=== PATIENT | female | born 1995 | race Caucasian/White ===

== ENCOUNTER 2018-10-09 16:19 | Outpatient (RCR) | payer OTHER | END 2019-01-07 | disposition home or self-care (01) | LOC: WSOH | DX: S61.032A Puncture wound without foreign body of left thumb without damage to nail, initial encounter (principal); W46.0XXA Contact with hypodermic needle, initial encounter; Z77.21 Contact with and (suspected) exposure to potentially hazardous body fluids; Y92.129 Unspecified place in nursing home as the place of occurrence of the external cause; G43.909 Migraine, unspecified, not intractable, without status migrainosus; F32.9 Major depressive disorder, single episode, unspecified; Z79.899 Other long term (current) drug therapy; Z87.891 Personal history of nicotine dependence; Y99.0 Civilian activity done for income or pay ==

== ENCOUNTER 2019-03-31 21:04 | Emergency (ER) | payer BC ==
[~2019-03-31] VITALS: Ht 180.3 cm; Wt 112.3 kg
[2019-03-31 21:51] LABS: BASO % 0.3 % (0.0-2.0); EOS # 0.2 (0.0-0.7); EOS % 2.3 % (0-4.0); GRAN # 3.2 (1.4-6.5); GRAN % 49.3 % (42.2-75.2); HEMATOCRIT 38.2 % (37.0-47.0); HEMOGLOBIN 12.6 g/dl (12.5-16.0); LYMPH # 2.7 (1.2-3.4); LYMPH % 40.7 % (20.0-51.0); MEAN CELL VOLUME 88 fl (80.0-100.0); MEAN CORPUSCULAR HEMOGLOBIN 29 pg (27.0-31.0); MEAN CORPUSCULAR HGB CONC 33 g/dl (33.0-37.0); MEAN PLATELET VOLUME 9.7 fl (7.4-10.4); MONO # 0.5 (0.1-0.6); MONO % 7.2 % (1.7-9.3); PLATELET COUNT 239 K/mm3 (130-400); RED BLOOD COUNT 4.33 M/mm3 (4.10-5.30); REDCELL DISTRIBUTION WIDTH-CV 13.1 % (11.5-14.5)
[2019-04-01 00:08] LABS: COLLECTION METHOD CLEAN CATCH
[2019-04-01 00:14] LABS: MUCOUS Present /lpf; PH 6 (5-8); SQUAMOUS EPITHELIAL 0-2 /hpf; URINE APPEARANCE Clear; URINE BACTERIA None Seen /hpf; URINE BILIRUBIN Negative (NEGATIVE); URINE BLOOD 2+ (NEGATIVE); URINE COLOR Yellow; URINE GLUCOSE Negative (NEGATIVE); URINE KETONE Negative (NEGATIVE); URINE LEUKOCYTE ESTERASE Negative (NEGATIVE); URINE NITRATE Negative (NEGATIVE); URINE PROTEIN(semi-quant) Negative (NEGATIVE); URINE RBC None Seen /hpf; URINE UROBILINOGEN Negative (NEGATIVE)
[2019-04-01 01:42] VITALS: BP 143/91; PULSE 97; TEMP 98.6
== END 2019-04-01 01:51 | disposition home or self-care (01) ==
LOC: COL.ER 21:04
PROVIDERS: Physician Assistant
DX: O02.0 Blighted ovum and nonhydatidiform mole (principal); Z3A.09 9 weeks gestation of pregnancy
CPT/HCPCS: J2791

== ENCOUNTER → 2020-02-28 | Outpatient (CLI) | payer BC ==
[~2020-02-28] MED LIST: CLEOCIN HCL300 MG PO; LEVAQUIN 750MG750 M1 PO; MOTRIN 800800 MG/TAB PO; PRENATAL MVI PO
== END | disposition still patient (30) ==
LOC: ZCOL.LAB 02:45
DX: Z20.822 Contact with and (suspected) exposure to COVID-19 (principal)

== ENCOUNTER 2020-02-29 02:49 | Outpatient (CLI) | payer BC ==
[~2020-02-29] VITALS: Ht 175.3 cm; Wt 133.2 kg
[~2020-02-29 02:49] MED LIST changes: -MOTRIN 800800 MG/TAB PO; -PRENATAL MVI PO
--- NOTE | 2020-02-29 02:50 | NUR ---
G2L0. 39-4. Ambulatory to LDR 4 with spouse. Clean gown on. EFM and TOCO explained and applied. Pt states she has been having contractions since 2300 tonight but states at 0100 they got more intense and were 4-6 mins apart. Denies leaking of fluids or vaginal bleeding. Reports good movment. VS taken. SVE /-3 by Herb DUMONT. Asssessment completed and plan of care explained. Call light within reach.
[2020-02-29] MEDS ORDERED: PRENATAL MVI PO (03:15)
[2020-02-29 03:30] VITALS: BP 139/84; PULSE 100; TEMP 98.4
[2020-02-29 04:06] VITALS: BP 136/80; PULSE 96
--- NOTE | 2020-02-29 04:06 | NUR ---
SVE UNCHANGED. PT OFF MONITORS TO USE RESTROOM AND CHANGE CLOTHES. PLAN OF CARE EXPLAINED TO PT AND SPOUSE. 0410: UPDATED ON PTS STATUS. SEE PHYSICAN NOTIFICATION. DISCHARGE ORDERS RECEIVED. 0420: DISCHARGE INSTRUCTIONS EXPLAINED TO PT AND SPOUSE. PT DENIES ANY QUESTIONS AT THIS TIME. PT AMBULATORY OFF UNIT AND HOME WITH SPOUSE.
== END 2020-02-29 04:20 | disposition home or self-care (01) ==
LOC: LDRO 02:49 → LDR 03:28 → LDRO 04:20
DX: O62.9 Abnormality of forces of labor, unspecified (principal); Z3A.39 39 weeks gestation of pregnancy; Z87.891 Personal history of nicotine dependence
CPT/HCPCS: OP

== ENCOUNTER 2020-03-03 07:09 | Inpatient (IN) | payer BC ==
[~2020-03-03] VITALS: Ht 175.3 cm; Wt 133.2 kg
[2020-03-03] VITALS (48 sets, daily range): BP systolic 91–137; BP diastolic 53–84; PULSE 80–120; TEMP 97.8–98.6
[~2020-03-03 07:09] MED LIST changes: +PRENATAL MVI PO
--- NOTE | 2020-03-03 07:15 | NUR ---
0715- 40.0, G2L0 arrives on unit for IOL. Ambulatory to LDR4 and oriented to room and plan of care. Changes into clean gown. Patient reports normal movment, denies any LOF, VB, or regular contractions. EFM explained and placed. VS obtained. Assessment completed. Consent forms explained and signed. 0720- IV to left hand. Routine labs obtained via iv site. LR infusing. 0725- Dr. Velasquez at bedside and reviews plan of care with patient and spouse. SVE per provider 2.5/70/-2. AROM at this time by Dr. Velasquez. No observable fluid noted. Pads applied. Will continue to monitor. 0740- Pitocin explained and started at 2mu per protocol. Patient denies questions or needs at this time. Resting with call light within reach.
[2020-03-03 07:59] LABS: BASO % 0.2 % (0.0-2.0); EOS # 0.2 (0.0-0.7); EOS % 1.5 % (0-4.0); GRAN # 7.7 (1.4-6.5); GRAN % 74.8 % (42.2-75.2); HEMATOCRIT 37.1 % (37.0-47.0); HEMOGLOBIN 12.1 g/dl (12.5-16.0); LYMPH # 1.9 (1.2-3.4); LYMPH % 18.6 % (20.0-51.0); MEAN CELL VOLUME 90 fl (80.0-100.0); MEAN CORPUSCULAR HEMOGLOBIN 29 pg (27.0-31.0); MEAN CORPUSCULAR HGB CONC 33 g/dl (33.0-37.0); MEAN PLATELET VOLUME 10.4 fl (7.4-10.4); MONO # 0.5 (0.1-0.6); MONO % 4.4 % (1.7-9.3); PLATELET COUNT 206 K/mm3 (130-400); RED BLOOD COUNT 4.12 M/mm3 (4.10-5.30); REDCELL DISTRIBUTION WIDTH-CV 14.3 % (11.5-14.5)
--- NOTE | 2020-03-03 10:50 | NUR ---
1050- Patient requesting epidural. Ayan Mendoza CRNA on unit and notified. 1055- Patient assisted to sit on edge of bed for epidural placement. FHR tracing intermittently due to maternal position and habitus. RN remains at bedside adj. EFM. Pitocin paused. 1104- Epidural placed and single shot at this time by Ayan Mendoza CRNA. 1110- Patient wedge right. EFM adjusted. Pitocin resumed at 14mu. Plan of care and safety precautions reviewed with patient who verbalizes understanding. Denies questions or needs at this time.
--- NOTE | 2020-03-03 12:05 | NUR ---
1205- FHR with intermittent early and late decels. BP noted to be 91/54. Ephedrine 10mg given per orders. See emar. 1209- Dr. Velasquez at bedside. SVE per provider 5cm. IUPC discussed and placed by Dr. Velasquez. Clear fluid noted with exam. Patient wedge right with peanut ball in place. Plan of care reviewed with patient and family who vebalize understanding.
--- NOTE | 2020-03-03 12:30 | NUR ---
MVU 230
--- NOTE | 2020-03-03 13:30 | NUR ---
MVU 225
--- NOTE | 2020-03-03 14:25 | NUR ---
1425- FHR with recurrent late decels. Patient left and right lateral. LR bolus. Pitocin to 10mu. Side lying hip release. 1450- Dr. Velasquez updated on patient. See physician notification.
--- NOTE | 2020-03-03 14:30 | NUR ---
MVU 265
--- NOTE | 2020-03-03 15:30 | NUR ---
MVU 255
--- NOTE | 2020-03-03 15:50 | NUR ---
1550- SVE C/+1. Dr. Velasquez updated on patient. See physician noticiation. Patient educated on pushing with contractions. Verbalizes understanding. 1600- Farmer catheter removed. Patient begins to push with contractions. Strong materanl effort noted. descent noted. 1603- Dr. Velasquez called for delivery. 1605- head crowing. Pitocin paused. 1610- Dr. Velasquez at bedside for delivery. Spontaneous vaginal delivery of viable female at this time. Cord clamped by provider and cut by father of baby. Spencer to mother's chest where dried and stimulated. Care of assumed by Biis Quinones RN. 1614- Spontaneous and intact delivery of placenta. Pitocin resumed at 333ml/hr per protocol. 2nd degree perineal laceration repaired by Dr. Velasquez. Fundus firm, midline, and bleeding minimal. Natasha care provided, pads changed, and ice to perineum. Plan of care and safety precautions reviewed with patient who verbalizes understanding. See doctor dictation, anesthesia record, and nurses notes. Patient denies questions or needs at this time.
[2020-03-04 03:00] VITALS: BP 114/58; PULSE 94; TEMP 97.6
[2020-03-04 07:00] VITALS: BP 130/74; PULSE 91; TEMP 98.2
--- NOTE | 2020-03-04 09:32 | NUR ---
Initial visit; Patient thanked Scientific Editor for offering congratulations and God's blessings for the of her daughter. Scientific Editor thanked Georgiana for choosing our hospital.
--- NOTE | 2020-03-04 10:26 | NUR ---
1005 THIS RN TO GIVE JADIEL AT THIS TIME. INT FLUSHED WITH NS. ROGHAM GIVEN. INT FLUSHED WITH NS. INT REMOVED. PT TOLERATED PROCEDURE WELL.
[2020-03-04 11:45] VITALS: BP 135/75; PULSE 108; TEMP 98.1
[2020-03-04 15:50] VITALS: BP 100/62; PULSE 95; TEMP 97.6
[2020-03-04 19:00] VITALS: BP 132/72; PULSE 96; TEMP 98.7
[2020-03-05] MEDS ORDERED: MOTRIN 800800 MG/TAB PO (07:24)
[2020-03-05 08:30] VITALS: BP 104/71; PULSE 94; TEMP 98.2
--- NOTE | 2020-03-05 10:45 | NUR ---
Request pain medication. Ibuprofen 800 mg given per request and as ordered.
== END 2020-03-05 14:45 | disposition home or self-care (01) | DRG 807 ==
LOC: LDR 07:09 → OB 10:08
PROVIDERS: ADMIT Obstetrics & Gynecology
PROC: 10E0XZZ Delivery of Products of Conception, External Approach (ICD-10-PCS; principal; 2020-03-03)
PROC: 0KQM0ZZ Repair Perineum Muscle, Open Approach (ICD-10-PCS; 2020-03-03)
PROC: 10907ZC Drainage of Amniotic Fluid, Therapeutic from Products of Conception, Via Natural or Artificial Opening (ICD-10-PCS; 2020-03-03)
DX: O99.02 Anemia complicating childbirth (principal); Z37.0 Single live birth; Z3A.40 40 weeks gestation of pregnancy; O70.1 Second degree perineal laceration during delivery
CPT/HCPCS: J0595; J2590; J2791; J2795; J7120